=== PATIENT | female | born 1985 | race Caucasian/White ===

== ENCOUNTER 2018-06-11 18:09 | Emergency (ER) | payer OTHER ==
--- NOTE | 2018-06-11 18:17 | ED Physician Documentation ---
Flank Pain - HISTORIAN Historian: patient - HPI Stated Complaint: flank pain Chief Complaint: Flank Pain Additional Information: Patient presents to ED with a 2 day history of bilateral flank pain L>R. Patient reports blood in urine. She denies fever, chills, night sweats or abdominal pain. She has a history of kidney stones. Onset: days ago (2) Duration: constant Timing: still present Context: denies: out of country travel Severity: moderate Quality: pain, aching, dull, cramping, sharp, stabbing Associated Symptoms: denies: fever, chills, nausea, vomiting, chest pain Exacerbated by: movements Relieved by: nothing Further Comments: no - ROS CONST: no problems GI/: none CVS/RESP: none EYES/ENT: none MS/SKIN/LYMPH: none NEURO/PSYCH: none - SOCIAL HX Smoking History: cigarettes, greater than 1 pack/day Alcohol Use: occasionally Drug Use: none - FAMILY HX Family History: none - PAST HX Past History: none Ischemic Bowel Risk Factors: none Other History: none Surgeries/Procedures: none - REVIEWED ASSESSMENTS Nursing Assessment Reviewed: Yes Vitals Reviewed: Yes ED Results Lab/Radiology - Lab Results Lab Results: UA - negative for infection, no blood - Radiology Radiology Impressions: eport Submission Date: Jun 11, 2018 7:11:42 PM CDT Patient Study Name: AUGUSTO SMITH Date: Jun 11, 2018 6:28:30 PM CDT Modality Type: CT\SR Gender: F Description: CT ABD PELVIS W/O CO : 85 Institution: [facility] Physician: LILY HUI CT abdomen and pelvis without contrast HISTORY Flank pain TECHNIQUE Images through the abdomen and pelvis were obtained without contrast. FINDINGS The lung bases, liver, gallbladder, spleen, pancreas, kidneys and adrenal glands are normal. There is no hydronephrosis, hydroureter, renal or ureteral calculus. There is no free air or fluid. There is no bowel obstruction. There is a large amount of retained fecal material throughout the entire colon. The uterus is grossly normal. IMPRESSION Constipation. Otherwise normal. Electronically signed on Jun 11, 2018 7:11:42 PM CDT by: Silverio Ordoñez Abdominal Pain Physical Exam - Physical Exam General Appearance: alert, other (crying) EENT: GLORIA NECK: normal inspection, supple RESPIRATORY: no resp distress, chest non-tender, breath sounds normal CVS: reg rate & rhythm, heart sounds normal ABDOMEN: soft, normal bowel sounds BACK: normal inspection, CVA tenderness (R), CVA tenderness (L) SKIN: warm/dry, normal color EXTREMITIES: non-tender NEURO: oriented X3 Discharge Clincal Impression: Constipation Qualifiers: Constipation type: unspecified constipation type Qualified Code(s): K59.00 - Constipation, unspecified Referrals: Primary Doctor,No [Primary Care Provider] - 2 Days Additional Instructions: 1. Take Mag Citrate once you arrive back at the facility 2. Drink plenty of fluids to maintain proper hydration 3. Avoid narcotics 4. Follow up with PCP within 1 week 5. Return to ER for new or worsening symptoms. Condition: Stable Disposition: 01 HOME, SELF-CARE Decision to Admit: NO Date of Decison to Admit: 06/11/18 Decision Time: 19:17
[2018-06-11] MEDS: 0.9 % SODIUM CHLORIDE 1,000 ML IV ONE (18:47)
[2018-06-11 19:00] LABS: MEAN CORPUSCULAR HEMOGLOBIN 29.2 pg (28.0-34.0)
[2018-06-11 19:03] LABS: eGFR (Non-African) > 60
[2018-06-11 19:07] LABS: EOSINOPHILS % 2 % (0-7); MONOCYTES % 8 % (0-11); SEGMENTED NEUTROPHILS % 65 % (39-79)
[2018-06-11 19:08] LABS: PLT EST. EST. AGREES W/PLT CT
[2018-06-11] MEDS: KETOROLAC TROMETHAMINE 30 MG/1ML VIAL IV ONE (19:19)
[2018-06-11] MEDS: MAGNESIUM CITRATE 296 ML BOTTLE PO ONE ×2 (19:21→19:22)
[2018-06-11 19:28] VITALS: BP 134/96
--- NOTE | 2018-06-11 20:46 | Diagnostic Imaging Report ---
LILY HUI [facility] [id number] [facility] [address] [place], [place]. [address] Report Submission Date: Jun 11, 2018 7:11:42 PM CDT Patient Study Name: AUGUSTO SMITH Date: Jun 11, 2018 6:28:30 PM CDT Modality Type: CT\SR Gender: F Description: CT ABD PELVIS W/O CO : 85 Institution: [facility] Physician: LILY HUI CT abdomen and pelvis without contrast HISTORY Flank pain TECHNIQUE Images through the abdomen and pelvis were obtained without contrast. FINDINGS The lung bases, liver, gallbladder, spleen, pancreas, kidneys and adrenal glands are normal. There is no hydronephrosis, hydroureter, renal or ureteral calculus. There is no free air or fluid. There is no bowel obstruction. There is a large amount of retained fecal material throughout the entire colon. The uterus is grossly normal. IMPRESSION Constipation. Otherwise normal. Electronically signed on Jun 11, 2018 7:11:42 PM CDT by: Silverio TORRES
[2018-06-11 23:46] LABS: APPEARANCE,URINE CLEAR (CLEAR); COLOR,URINE YELLOW (YELLOW); OCCULT BLOOD,URINE NEGATIVE (NEGATIVE); UROBILINOGEN URINE 0.2 Eu (0.2-1.0)
== END 2018-06-11 19:29 | disposition home or self-care (01) ==
LOC: ED 18:09
DX: K59.00 Constipation, unspecified (principal); Z72.0 Tobacco use
CPT/HCPCS: 36415; 74176; 80053; 81002; 81025; 85025; 96374; 99283; 99284; J1885; J7030; S1016

== ENCOUNTER 2019-01-28 00:12 | Emergency (ER) | payer OTHER ==
[2019-01-28 00:34] VITALS: BP 124/74
--- NOTE | 2019-01-28 01:21 | ED Physician Documentation ---
General Adult - HISTORIAN Historian: patient - HPI Stated Complaint: Playing basketball, twisted Lt ankle and fell to Rt buttock Chief Complaint: Fall Onset: hours (2) Timing: still present Severity: moderate Further Comments: yes (fell playing basketball and right hip and left ankle are hurting. No OTC meds . no loss of sensation. no other complaints) - ROS CONST: no problems - PAST HX Past History: none Allergies/Adverse Reactions: Allergies Allergy/AdvReac Type Severity Reaction Status Date / Time Penicillins Allergy Verified 06/11/18 18:29 latex AdvReac Rash Verified 06/11/18 18:29 Home Medications: Ambulatory Orders Medication Instructions Recorded metroNIDAZOLE [Flagyl] 01/28/19 - SOCIAL HX Smoking History: non-smoker Alcohol Use: none Drug Use: none - FAMILY HX Family History: No - VITAL SIGNS Vital Signs: Vital Signs Temp Pulse Resp BP Pulse Ox 99.3 F 78 14 124/74 99 01/28/19 00:17 01/28/19 00:17 01/28/19 00:17 01/28/19 00:17 01/28/19 00:17 - REVIEWED ASSESSMENTS Nursing Assessment Reviewed: Yes Vitals Reviewed: Yes ED Results Lab/Radiology - Orders Orders: ED Orders Category Date Time Status ANKLE 3 VIEWS OR MORE [RAD] Stat Exams 01/28/19 Taken RT HIP 2VIEW COMPLETE [RAD] Routine Exams 01/28/19 00:30 Taken General Adult Physical Exam - PHYSICAL EXAM GENERAL APPEARANCE: no distress EENT: eye inspection normal, no signs of dehydration NECK: normal inspection RESPIRATORY: no resp distress, chest non-tender, breath sounds normal CVS: reg rate & rhythm, heart sounds normal, equal pulses ABDOMEN: soft, non-tender SKIN: warm/dry, normal color EXTREMITIES: other (left ankle lateral side with pain to palpation. Pulses + mild swelling. No other obvious injury Pain with flexion . [place] warm and dry ) NEURO: oriented X3 Discharge Clincal Impression: Fall Qualifiers: Encounter type: initial encounter Qualified Code(s): W19.XXXA - Unspecified fall, initial encounter Referrals: Primary Doctor,No [Primary Care Provider] - 2 Days Comments: 1. OTC meds as directed as needed for pain 2. Ice area as needed for comfort 3. See PCP in 2-4 days 4. Return to ER for any added concerns Condition: Stable Disposition: 01 HOME, SELF-CARE Decision to Admit: NO Date of Decison to Admit: 01/28/19 Decision Time: 01:21
== END 2019-01-28 01:27 | disposition home or self-care (01) ==
LOC: ED 00:12
DX: M25.572 Pain in left ankle and joints of left foot (principal); X50.1XXA Overexertion from prolonged static or awkward postures, initial encounter; Y93.67 Activity, basketball
CPT/HCPCS: 73502; 73610; 99283; 99284